=== PATIENT | female | born 1970 | race Caucasian/White ===

== ENCOUNTER → 2017-09-07 | Outpatient (CLI) | payer BC, OTHER ==
--- NOTE | 2017-09-09 14:48 | MAM ---
EXAM DESCRIPTION: 3D Screening BILATERAL : Digital Mammography. CLINICAL HISTORY: 47 years Female SCREENING . No complaints. No family history of breast cancer. Childbirth. Premenopausal. Taking HRT less than 5 years ago. COMPARISON: 2-D digital screening bilateral study 10/09/2015. Report from prior examination also reviewed. TECHNIQUE: Bilateral CC and MLO projection full-field images, 3-D tomosynthesis digital mammographic technique. CAD not utilized. FINDINGS: The breast parenchymal density pattern is: Heterogeneously dense breast tissue, which may obscure small masses. No skin thickening or nipple retraction. Bilateral axillary lymph nodes. Bilateral solitary microcalcifications. No new focal, stellate mass or density, focal asymmetry , and no suspicious microcalcifications bilaterally. Stable mammograms compared to prior study, taking into account differences in mammographic technique. IMPRESSION: BI-RADS CATEGORY: 2 - BENIGN FINDINGS. FOLLOW UP: Routine digital bilateral screening, one year interval from August 2017. Written communication explaining the IMPRESSION and follow-up, will be mailed to the patient and referring health care provider. According to the [employer], yearly mammograms are recommended starting at age 40 and continuing as long as a woman is in good health. Any breast change noted on a breast self-exam should be reported promptly to the patient's healthcare provider. Breast MRI is recommended for women with an approximately 20-25% or greater lifetime risk of breast cancer, including women with a strong family history of breast or ovarian cancer and women who have been treated for Hodgkin's disease. A negative mammographic report should not delay tissue diagnosis in patients with significant clinical history or physical findings. Extremely dense breast tissue limits the sensitivity of digital mammography. Electronically signed by: Javier Mckinney MD 09/09/2017 2:46 PM CDT
== END ==
LOC: MAMMO 11:00
PROVIDERS: ATTEND Family Medicine
DX: Z12.31 Encounter for screening mammogram for malignant neoplasm of breast (principal)

== ENCOUNTER → 2018-10-03 | Outpatient (CLI) | payer OTHER ==
--- NOTE | 2018-10-04 09:59 | MAM ---
EXAM DESCRIPTION: 3D Screening BILATERAL : Digital Mammography. CLINICAL HISTORY: 48 years Female ANNUAL SCREENING . No complaints. No personal or family history of breast cancer. Childbirth. Premenopausal. Currently on HRT. Lifetime risk of developing breast cancer (Tyrer-Cuzick model)(%): 12.1. COMPARISON: Bilateral screening digital breast tomosynthesis 09/07/2017. TECHNIQUE: Bilateral CC and MLO projection full-field images, digital tomosynthesis mammographic technique. Bilateral digital 2-D full-field MLO images. CAD not available for tomosynthesis or 2-D images. FINDINGS: The breast parenchymal density pattern is: Heterogeneously dense breast tissue, which may obscure small masses. No skin thickening or nipple retraction. Small bilateral solitary microcalcifications. Mass density anterior to middle third of the midline left breast 6:00 position 5 cm from the nipple. Not well seen on the prior study. Not associated with microcalcifications. Right axillary lymph nodes.. No new focal, stellate mass or density, focal asymmetry , and no suspicious microcalcifications right breast. IMPRESSION: BI-RADS CATEGORY: 0 - INCOMPLETE- Need additional imaging evaluation. FOLLOW-UP: Recall for additional imaging: Left breast full-field LM tomosynthesis followed by targeted left breast ultrasound of the region of interest.. Written communication concerning the IMPRESSION and Follow-up, will be mailed to the patient and referring health care provider. Electronically signed by: Javier Mckinney MD 10/04/2018 9:57 AM CDT
== END ==
LOC: MAMMO 10:57
PROVIDERS: ATTEND Family Medicine
DX: Z12.31 Encounter for screening mammogram for malignant neoplasm of breast (principal)

== ENCOUNTER → 2018-10-24 | Outpatient (CLI) | payer OTHER ==
--- NOTE | 2018-10-24 16:50 | US ---
EXAM DESCRIPTION: Breast,Left: Ultrasound CLINICAL HISTORY: 48 yearsFemaleABNORMAL MAMMO mass density anterior middle third of the left breast near the posterior nipple line. COMPARISON: Bilateral screening digital breast tomosynthesis 10/03/2018. TECHNIQUE: Transcutaneous scanning of the left breast utilizing bhatt-scale and Doppler modes. Scanning performed by the block sawyer ; observation by Dr. Mckinney. FINDINGS: Ultrasound: The tissue is predominantly fibroglandular with minimal fatty echotexture. Scanning middle third of the left breast around the posterior nipple line. A hypoechoic to anechoic mass in the left breast with circumscribed and microlobulated margins. Possibly angular margins. Wider than tall orientation and posterior acoustic enhancement. A vascular structure courses by the mass. The mass measures 8.4 x 9.7 mm with possible calcification on the anterior margin. Differential includes complicated cyst, complicated cluster of cysts, fibroadenoma, or malignancy. No dominant solid mass or simple cyst. No large calcifications. No parenchymal edema. IMPRESSION: BI-RADS CATEGORY 4: SUSPICIOUS. SUB-CATEGORY 4A - LOW SUSPICION FOR MALIGNANCY. Surgical consultation and tissue diagnosis should be considered. The FINDINGS and FOLLOW-UP plan were reviewed in person with the patient following the examination. Written communication explaining the IMPRESSION and FOLLOW-UP will be mailed to the patient and referring care provider. CRITICAL COMMUNICATION: The critical value was discussed directly by phone with Dr. Argelia Ruiz at approximately 1545 hours, on October 24, 2018. Electronically signed by: Javier Mckinney MD 10/24/2018 4:49 PM CDT
== END ==
LOC: US 15:05
PROVIDERS: ATTEND Family Medicine
DX: R92.8 Other abnormal and inconclusive findings on diagnostic imaging of breast (principal)

== ENCOUNTER → 2018-11-07 | Outpatient (CLI) | payer OTHER | LOC: MAMMO 15:47 | PROVIDERS: ATTEND Surgery | DX: R92.8 Other abnormal and inconclusive findings on diagnostic imaging of breast (principal) ==

== ENCOUNTER → 2020-03-06 | Outpatient (CLI) | payer BC, OTHER ==
--- NOTE | 2020-03-13 18:53 | MAM ---
EXAM DESCRIPTION: 3D Screening BILATERAL : Digital Mammography. CLINICAL HISTORY: 49 years Female screening . No complaints. Mother with breast cancer age 79. Menarche age 12. Childbirth age 28. Menopause age 49. HRT less than 5 years ago. Lifetime risk of developing breast cancer (Tyrer-Cuzick model)(%): 18.2. COMPARISON: Bilateral Screening digital breast tomosynthesis September 2018 and August 2017. Left breast ultrasound and cyst aspiration October 2018. TECHNIQUE: Bilateral CC and MLO projection full-field images, digital tomosynthesis mammographic technique. Bilateral digital 2-D full-field MLO images. CAD available for 2-D images. FINDINGS: The breast parenchymal density pattern is: Heterogeneously dense breast tissue, which may obscure small masses. Dense fibroglandular tissues anterior third bilaterally. Small mass density with circumscribed margins has decreased in size abutting the posterior nipple line right breast retroareolar. Axillary nodes. Solitary microcalcifications. Circumscribed mass densities in the middle third of the left breast have decreased in size since the prior study. This is also site of prior breast cyst aspiration. Calcification versus biopsy site marker in the adjacent soft tissue. No skin thickening or nipple retraction No new focal, stellate mass or density, focal asymmetry , and no suspicious microcalcifications bilaterally. IMPRESSION: Benign exam. BIRAD CATEGORY: 2 BENIGN FINDINGS. RECOMMENDATIONS: FOLLOW UP: Routine digital bilateral mammographic screening, one year interval from February 2020. Written communication explaining the IMPRESSION and follow-up, will be mailed to the patient and referring health care provider. According to the [employer], yearly mammograms are recommended starting at age 40 and continuing as long as a woman is in good health. Any breast change noted on a breast self-exam should be reported promptly to the patient's healthcare provider. Breast MRI is recommended for women with an approximately 20-25% or greater lifetime risk of breast cancer, including women with a strong family history of breast or ovarian cancer and women who have been treated for Hodgkin's disease. A negative mammographic report should not delay tissue diagnosis in patients with significant clinical history or physical findings. Extremely dense breast tissue limits the sensitivity of digital mammography. Electronically signed by: Javier Mckinney MD 03/13/2020 6:51 PM [employer]
== END ==
LOC: MAMMO 11:26
PROVIDERS: ATTEND Family Medicine
DX: Z12.31 Encounter for screening mammogram for malignant neoplasm of breast (principal)